=== PATIENT | male | born 1980 | race Asian ===

== ENCOUNTER → 2018-05-22 09:57 | Outpatient (CLI) | payer BC, SELFPAY ==
--- NOTE | 2018-05-22 10:00 | DI.RAD.S_ITS ---
PROCEDURE: XR RIBS RT MIN 3V W CXR 1V INDICATIONS: 37 y/o M w/ worsening R rib pain s/p prolonged cough TECHNIQUE: 2 views of the right ribs were acquired, along with a single view chest. COMPARISON: None. FINDINGS: Surgical changes and devices: None. Bones and chest wall: No fractures or dislocations. No suspicious bony lesions. Overlying soft tissues appear unremarkable. Lungs and pleura: No pleural effusions or pneumothorax. Lungs appear clear. Mediastinum: Mediastinal contours appear normal. Heart size is normal. IMPRESSION: No rib fracture or apparent sequelae of any occult fracture. Dictated by: Fawad Finn M.D. on 05/22/2018 at 11:09 Approved by: Fawad Finn M.D. on 05/22/2018 at 11:13
[2018-05-22 10:24] LABS: Add Manual Diff / Slide Review NO; Basophils Percent Auto 0.8 % (0-2); Eosinophils Percent Auto 2.2 % (2-4); Hematocrit 43.9 % (41-53); Hemoglobin 14.7 g/dL (13.5-17.5); Lymphocytes Percent Auto 48.6 % (25-40); Mean Corpuscular HGB Conc 33.6 % (30-36); Mean Corpuscular Hemoglobin 30.5 PG (26-34); Mean Corpuscular Volume 90.9 fL (80-100); Monocytes Percent Auto 9.7 % (3-14); Neutrophils Absolute Auto 1900 /uL (3000-5900); Neutrophils Percent Auto 38.7 % (50-75); Platelet Count 401 X10^3/uL (150-400); Red Blood Cell Count 4.83 X10^6/uL (4.5-5.9); Red Cell Distribution Width 12.8 % (11.6-14.8)
[2018-05-22 10:46] LABS: Alanine Aminotransferase 28 IU/L (21-72); Albumin 4.6 g/dL (3.5-5.0); Albumin Globulin Ratio 1.3 (1.0-2.8); Alkaline Phosphatase 85 U/L (38-126); Aspartate Aminotransferase 30 IU/L (17-59); BUN Creatinine Ratio 22.9 (6-22); Bilirubin Total 0.6 mg/dL (0.2-1.3); Blood Urea Nitrogen 16 mg/dL (9-20); C-Reactive Protein Quant < 0.5 mg/dL (<1.0); Calcium 9.1 mg/dL (8.4-10.2); Carbon Dioxide 31 mmol/L (22-32); Chloride 102 mmol/L (98-107); Estimated Glomerular Filt Rate > 60.0 mL/min (>60); Globulin 3.5 g/dL (1.7-4.1); Glucose 74 mg/dL (70-100); HEMOLYSIS < 15 (0-50); Potassium 3.9 mmol/L (3.4-5.1); Sodium 142 mmol/L (137-145); Total Protein 8.1 g/dL (6.3-8.2)
[2018-05-22 10:47] LABS: Erythrocyte Sedimentation Rate 6 MM/HR (0-15)
== END ==
PROVIDERS: PCP Physician Assistant; Visit Provider Physician Assistant
DX: R07.81 Pleurodynia (principal)
CPT/HCPCS: 36415; 71101; 80053; 85025; 85651; 86140

== ENCOUNTER 2019-02-13 09:53 | Emergency (ER) | payer BC, SELFPAY ==
[2019-02-13 10:00] VITALS: BP 128/78; PULSE 79; RESP 18; TEMP 36.8; O2SAT 100; BMI 25.1
--- NOTE | 2019-02-13 10:15 | ED.GENADULT ---
HPI - General Adult General Chief complaint: Extremity Problem,Nontraumatic Stated complaint: Hands Cramping and in a lot of pain Time Seen by Provider: 02/13/19 10:03 Source: patient and family () Mode of arrival: wheelchair Limitations: no limitations History of Present Illness HPI narrative: This is a 38-year-old male who comes in with complaint of fever and little bit of cold cough and congestion symptoms. Patient states that this morning he woke up felt very nauseated and started having cramping in his hands with a cramped up. Patient also felt like he is having a little bit in his feet but it was not as extensive he did have any cramping in his upper extremities otherwise or his lower extremities. He has not had any vomiting. He states his nausea has resolved after the hand cramping. Patient isn't having any chest pain, no abdominal pain, no shortness of breath. He has not had any passing out. Patient is denying any difficulties with speech or irregular movements. Patient has had normal bowel movements. He has had normal urination. He states he has had symptoms for about 2 or 3 days. He has not been drinking much water but has been eating regularly. 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 He states that in May of 2018 he had a tick bite with a little bit of rash although was not when he was told was the typical Lyme rash she was checked for Lyme disease and was told it was negative. He is continuing to have the rash or skin irregularity. He states it is not really a rash and has an appointment with Dermatology. Related Data Previous Rx's Medication Instructions Recorded oseltamivir [Tamiflu] 75 mg PO Q12H 5 Days #10 cap 02/13/19 Allergies Allergy/AdvReac Type Severity Reaction Status Date / Time No Known Drug Allergies Allergy Verified 02/13/19 10:09 Review of Systems Review of Systems ROS Unobtainable: All systems reviewed & are unremarkable except as noted in HPI and below Constitutional Denies chills, Reports fever(s), Denies lethargy and Denies weakness Eyes Denies change in vision ENT Ears, Nose, Mouth, and Throat: Denies dizziness, Reports nasal congestion and Denies disequilibrium Cardiovascular Denies chest pain, Denies diaphoresis, Denies syncope, Denies edema, Denies irregular heart rhythm, Denies lightheadedness, Denies palpitations, Denies dyspnea, Denies dyspnea on exertion and Denies orthopnea Respiratory Denies change in phlegm color, Denies chest congestion, Reports cough, Denies excessive phlegm production, Denies dyspnea, Denies dyspnea on exertion and Denies wheezing Gastrointestinal Gastrointestinal: Denies abdominal pain, Denies change in bowel habits, Denies constipation, Denies diarrhea, Reports nausea (Resolved) and Denies vomiting Genitourinary Denies hematuria, Denies difficulty urinating, Denies dysuria, Denies flank pain and Denies urinary urgency Musculoskeletal Reports as per HPI, Denies abnormal gait, Denies back pain, Denies arthralgias, Denies joint swelling, Reports muscle cramps (Hands a little bit in the), Denies muscle weakness, Denies numbness and Denies tingling Integumentary/Breasts Reports rash (raised bumps from old tick bites.) Neurologic Reports as per HPI, Denies abnormal speech, Denies abnormal gait, Denies dizziness, Denies syncope, Denies focal weakness, Denies numbness, Denies restless legs, Denies convulsions, Denies tingling, Denies disequilibrium and Denies weakness Endocrine Denies palpitations Allergic/Immunologic Denies wheezing PFSH Social History Smoking Status: Never smoker alcohol intake: never Social History (Updated 02/13/19 @ 10:19 by Mary Morton DO) marital status: current occupational exposures/hazards: Yes (Works in [employer]) Smoking Status: Never smoker alcohol intake: never substance use type: does not use Exam Narrative Exam Narrative: GEN: well nourished, well appearing male, alert and oriented x 3, patient appears to be in mild distress. HEENT: Atraumatic, pupils are equal round reactive to light, extraocular movements are intact, nares are clear, TMs are clear with no fluid, there is no conjunctival pallor. Throat is clear without any exudates, erythema, tonsillar enlargement or uvular deviation, normal speech. HEART: Regular rate and rhythm without murmur, clicks, rubs. Pulses are equal in upper and lower extremities LUNGS:Lungs clear to auscultation, no wheezes, rales, crackles, chest moves symmetrically ABD:bowel sounds normal, soft, non-tender, no guarding, rebound, rigidity, no masses noted, no hepatosplenomegaly :No CVA tenderness MSCL: Non-tender, no muscle atrophy, muscles strength 5/5 upper and lower extremities, full range of motion, hands are held flexed at the MCP joints with fingers mostly extended. I am able to easily straight them which does not cause any discomfort and there is no resistance, patient was able to scratch his ear and move his fingers but fingers or to stay in the same generalized position, they appear loosely held. No other cramping noted. No muscle fasciculations. NEURO:CN 2-12 intact, sensation normal, reflexes 2/4 upper and lower extremities Initial Vital Signs Initial Vital Signs: Vital Signs Temperature 98.2 F 02/13/19 10:00 Pulse Rate 79 02/13/19 10:00 Respiratory Rate 18 02/13/19 10:00 Blood Pressure 128/78 02/13/19 10:00 Pulse Oximetry 100 02/13/19 10:00 Course Orders Ordered: ED Orders 02/13/19 11:28 Urine Microscopic Stat Discontinued Medications Furosemide (Lasix) 40 mg IV NOW ONE Stop: 02/13/19 12:39 Last Admin: 02/13/19 12:59 Dose: Not Given Sodium Chloride (Normal Saline 0.9%) 1,000 mls @ 1,000 mls/hr IV BOLUS ONE Stop: 02/13/19 11:14 Last Infusion: 02/13/19 11:30 Dose: 0 mls/hr Admin: 02/13/19 10:30 Dose: 1,000 mls/hr Vital Signs - 8 hr 02/13/19 12:00 02/13/19 13:00 Temperature 98.9 F Pulse Rate 88 87 Respiratory Rate 23 85 H Blood Pressure [Left Arm] 122/69 119/69 Pulse Oximetry 100 98 Medical Decision Making Lab Data Lab results reviewed: Yes I reviewed the patient's lab results. Result diagrams: 02/13/19 10:20 02/13/19 10:20 Lab Results 02/13/19 02/13/19 02/13/19 Range/Units 10:20 10:20 10:20 WBC 5.8 (4.5-11.0) X10^3/uL RBC 5.06 (4.5-5.9) X10^6/uL Hgb 15.4 (13.5-17.5) g/dL Hct 45.5 (41-53) % MCV 89.8 (80-100) fL MCH 30.4 (26-34) PG MCHC 33.8 (30-36) % RDW 12.9 (11.6-14.8) % Plt Count 257 (150-400) X10^3/uL Neut % (Auto) 68.5 (50-75) % Lymph % (Auto) 18.9 L (25-40) % [place] % (Auto) 12.1 (3-14) % Eos % (Auto) 0.1 L (2-4) % Baso % (Auto) 0.4 (0-2) % Neut # (Auto) 3900 (0581-7892) /uL Lymph # (Auto) 1100 (7578-1367) /uL [place] # (Auto) 700 (0-900) /uL Eos # (Auto) 0 (0-450) /uL Baso # (Auto) 0 (0-100) /uL Sodium 137 (137-145) mmol/L Potassium 3.6 (3.4-5.1) mmol/L Chloride 100 (98-107) mmol/L Carbon Dioxide 25 (22-32) mmol/L BUN 10 (9-20) mg/dL Creatinine 1.00 (0.66-1.25) mg/dL Estimated GFR > 60.0 (>60) mL/min BUN/Creatinine Ratio 10.0 (6-22) Glucose 128 H (70-100) mg/dL Calcium 8.9 (8.4-10.2) mg/dL Phosphorus 2.2 L (2.5-4.5) mg/dL Magnesium 1.8 (1.6-2.3) mg/dL Total Bilirubin 0.4 (0.2-1.3) mg/dL AST 27 (17-59) IU/L ALT 33 (21-72) IU/L Alkaline Phosphatase 71 (38-126) U/L Total Protein 7.7 (6.3-8.2) g/dL Albumin 4.6 (3.5-5.0) g/dL Globulin 3.1 (1.7-4.1) g/dL Albumin/Globulin Ratio 1.5 (1.0-2.8) Lipase 36 (23-300) U/L Urine RBC (0-5/HPF) Urine WBC (0-5/HPF) Ur Squamous Epith Cells Urine Bacteria (None) Urine Mucus (Negative) Ur Culture Indicated? Influenza A & B (PCR) Positive, type b H (Negative) 02/13/19 Range/Units 11:28 WBC (4.5-11.0) X10^3/uL RBC (4.5-5.9) X10^6/uL Hgb (13.5-17.5) g/dL Hct (41-53) % MCV (80-100) fL MCH (26-34) PG MCHC (30-36) % RDW (11.6-14.8) % Plt Count (150-400) X10^3/uL Neut % (Auto) (50-75) % Lymph % (Auto) (25-40) % [place] % (Auto) (3-14) % Eos % (Auto) (2-4) % Baso % (Auto) (0-2) % Neut # (Auto) (4813-0630) /uL Lymph # (Auto) (3385-2624) /uL [place] # (Auto) (0-900) /uL Eos # (Auto) (0-450) /uL Baso # (Auto) (0-100) /uL Sodium (137-145) mmol/L Potassium (3.4-5.1) mmol/L Chloride (98-107) mmol/L Carbon Dioxide (22-32) mmol/L BUN (9-20) mg/dL Creatinine (0.66-1.25) mg/dL Estimated GFR (>60) mL/min BUN/Creatinine Ratio (6-22) Glucose (70-100) mg/dL Calcium (8.4-10.2) mg/dL Phosphorus (2.5-4.5) mg/dL Magnesium (1.6-2.3) mg/dL Total Bilirubin (0.2-1.3) mg/dL AST (17-59) IU/L ALT (21-72) IU/L Alkaline Phosphatase (38-126) U/L Total Protein (6.3-8.2) g/dL Albumin (3.5-5.0) g/dL Globulin (1.7-4.1) g/dL Albumin/Globulin Ratio (1.0-2.8) Lipase (23-300) U/L Urine RBC None seen (0-5/HPF) Urine WBC None seen (0-5/HPF) Ur Squamous Epith Cells 0-1 /hpf Urine Bacteria None seen (None) Urine Mucus 1+ H (Negative) Ur Culture Indicated? Cult not indicated Influenza A & B (PCR) (Negative) Urine Dip Bedside Urine Glucose Negative Bedside Urine Bilirubin - Negative Bedside Urine Ketone + 15 Urine Specific [place] 1.015 Bedside Urine Occult Blood - Negative Bedside Urine pH 7.5 Bedside Urine Protein + 30 Bedside Urine Urobilinogen +/- 1mg Bedside Urine Nitrite - Negative Bedside Urine Leukocytes - Negative Esterase Point of care testing: Urine Dip Bedside Urine Glucose Negative Bedside Urine Bilirubin - Negative Bedside Urine Ketone + 15 Urine Specific [place] 1.015 Bedside Urine Occult Blood - Negative Bedside Urine pH 7.5 Bedside Urine Protein + 30 Bedside Urine Urobilinogen +/- 1mg Bedside Urine Nitrite - Negative Bedside Urine Leukocytes - Negative Esterase MDM Narrative Medical decision making narrative: Discussed with patient. He is influenza positive. His phosphorus is low but not extremely. He has also been taking cold and cough medicine [id number] above the recommended frequency. He states he is taking about every 4 hours but the bottle states only take about 4 times daily. He also has not had hardly any water in the last 24 hours. Just a couple sips. We discussed increase his fluids. His symptoms have resolved after fluids here in the ED. Patient and I discussed Tamiflu he decided could take it. We discussed signs symptoms to watch out for. He could drink some extra skim milk as this can help with low phosphorus. He was offered phosphorus replacement but defers. Discharge Plan Departure Patient Disposition: Home Clinical Impression: Influenza B, Low serum phosphorus for age Discharge Date/Time: 02/13/19 13:35 Interventions: ED Discharge Assessment Last Done: 02/13/19 13:35 Instructions: DI for Influenza -- Adult Activity Restrictions/Additional Instructions: Make sure your drinking plenty of fluids. Do not exceed any recommended dosages of [id number] cough or cold medications in a 24 hour. This can contribute to your muscle spasms. Take Tamiflu 1 tablet twice daily for 5 days. Your phosphorus is low today, you can increase this by drinking skim milk regularly for the next 1-2 days. I do recommend he take ibuprofen up to 800 mg every 8 hours and/or Tylenol to a 1000 mg every 8 hours as needed for fevers. Return to the emergency department for altered mental status, rapidly worsening symptoms, new shortness of breath, difficulty breathing, chest pain or pressure, persistent vomiting, black or bloody stools, passing out, recurrent or refractory muscle spasms, or other new or concerning symptoms. Prescriptions: New oseltamivir [Tamiflu] 75 mg capsule 75 mg PO Q12H 5 Days Qty: 10 RF: 0 Referrals: Jordan Tamez PA-C [Primary Care Provider] - Stand Alone Forms: Work Release Note
--- NOTE | 2019-02-13 10:21 | ED_ITS ---
HPI - General Adult General Chief complaint: Extremity Problem,Nontraumatic Stated complaint: Hands Cramping and in a lot of pain Time Seen by Provider: 02/13/19 10:03 Source: patient and family () Mode of arrival: wheelchair Limitations: no limitations History of Present Illness HPI narrative: This is a 38-year-old male who comes in with complaint of fever and little bit of cold cough and congestion symptoms. Patient states that this morning he woke up felt very nauseated and started having cramping in his hands with a cramped up. Patient also felt like he is having a little bit in his feet but it was not as extensive he did have any cramping in his upper extremities otherwise or his lower extremities. He has not had any vomiting. He states his nausea has resolved after the hand cramping. Patient isn't having any chest pain, no abdominal pain, no shortness of breath. He has not had any passing out. Patient is denying any difficulties with speech or irregular movements. Patient has had normal bowel movements. He has had normal urination. He states he has had symptoms for about 2 or 3 days. He has not been drinking much water but has been eating regularly. 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 He states that in May of 2018 he had a tick bite with a little bit of rash although was not when he was told was the typical Lyme rash she was checked for Lyme disease and was told it was negative. He is continuing to have the rash or skin irregularity. He states it is not really a rash and has an appointment with Dermatology. Related Data Previous Rx's Medication Instructions Recorded oseltamivir [Tamiflu] 75 mg PO Q12H 5 Days #10 cap 02/13/19 Allergies Allergy/AdvReac Type Severity Reaction Status Date / Time No Known Drug Allergies Allergy Verified 02/13/19 10:09 Review of Systems Review of Systems ROS Unobtainable: All systems reviewed & are unremarkable except as noted in HPI and below Constitutional Denies chills, Reports fever(s), Denies lethargy and Denies weakness Eyes Denies change in vision ENT Ears, Nose, Mouth, and Throat: Denies dizziness, Reports nasal congestion and Denies disequilibrium Cardiovascular Denies chest pain, Denies diaphoresis, Denies syncope, Denies edema, Denies irregular heart rhythm, Denies lightheadedness, Denies palpitations, Denies dyspnea, Denies dyspnea on exertion and Denies orthopnea Respiratory Denies change in phlegm color, Denies chest congestion, Reports cough, Denies excessive phlegm production, Denies dyspnea, Denies dyspnea on exertion and Denies wheezing Gastrointestinal Gastrointestinal: Denies abdominal pain, Denies change in bowel habits, Denies constipation, Denies diarrhea, Reports nausea (Resolved) and Denies vomiting Genitourinary Denies hematuria, Denies difficulty urinating, Denies dysuria, Denies flank pain and Denies urinary urgency Musculoskeletal Reports as per HPI, Denies abnormal gait, Denies back pain, Denies arthralgias, Denies joint swelling, Reports muscle cramps (Hands a little bit in the), Denies muscle weakness, Denies numbness and Denies tingling Integumentary/Breasts Reports rash (raised bumps from old tick bites.) Neurologic Reports as per HPI, Denies abnormal speech, Denies abnormal gait, Denies diz ziness, Denies syncope, Denies focal weakness, Denies numbness, Denies restless legs, Denies convulsions, Denies tingling, Denies disequilibrium and Denies weakness Endocrine Denies palpitations Allergic/Immunologic Denies wheezing PFSH Social History Smoking Status: Never smoker alcohol intake: never Social History (Updated 02/13/19 @ 10:19 by Mary Morton DO) marital status: current occupational exposures/hazards: Yes (Works in [employer]) Smoking Status: Never smoker alcohol intake: never substance use type: does not use Exam Narrative Exam Narrative: GEN: well nourished, well appearing male, alert and oriented x 3, patient appears to be in mild distress. HEENT: Atraumatic, pupils are equal round reactive to light, extraocular movements are intact, nares are clear, TMs are clear with no fluid, there is no conjunctival pallor. Throat is clear without any exudates, erythema, tonsillar enlargement or uvular deviation, normal speech. HEART: Regular rate and rhythm without murmur, clicks, rubs. Pulses are equal in upper and lower extremities LUNGS:Lungs clear to auscultation, no wheezes, rales, crackles, chest moves symmetrically ABD:bowel sounds normal, soft, non-tender, no guarding, rebound, rigidity, no masses noted, no hepatosplenomegaly :No CVA tenderness MSCL: Non-tender, no muscle atrophy, muscles strength 5/5 upper and lower extremities, full range of motion, hands are held flexed at the MCP joints with fingers mostly extended. I am able to easily straight them which does not cause any discomfort and there is no resistance, patient was able to scratch his ear and move his fingers but fingers or to stay in the same generalized position, they appear loosely held. No other cramping noted. No muscle fasciculations. NEURO:CN 2-12 intact, sensation normal, reflexes 2/4 upper and lower extremities Initial Vital Signs Initial Vital Signs: Vital Signs Temperature 98.2 F 02/13/19 10:00 Pulse Rate 79 02/13/19 10:00 Respiratory Rate 18 02/13/19 10:00 Blood Pressure 128/78 02/13/19 10:00 Pulse Oximetry 100 02/13/19 10:00 Course Orders Ordered: ED Orders 02/13/19 11:28 Urine Microscopic Stat Discontinued Medications Furosemide (Lasix) 40 mg IV NOW ONE Stop: 02/13/19 12:39 Last Admin: 02/13/19 12:59 Dose: Not Given Sodium Chloride (Normal Saline 0.9%) 1,000 mls @ 1,000 mls/hr IV BOLUS ONE Stop: 02/13/19 11:14 Last Infusion: 02/13/19 11:30 Dose: 0 mls/hr Admin: 02/13/19 10:30 Dose: 1,000 mls/hr Vital Signs - 8 hr 02/13/19 12:00 02/13/19 13:00 Temperature 98.9 F Pulse Rate 88 87 Respiratory Rate 23 85 H Blood Pressure [Left Arm] 122/69 119/69 Pulse Oximetry 100 98 Medical Decision Making Lab Data Lab results reviewed: Yes I reviewed the patient's lab results. Result diagrams: 02/13/19 10:20 02/13/19 10:20 Lab Results 02/13/19 02/13/19 02/13/19 Range/Units 10:20 10:20 10:20 WBC 5.8 (4.5-11.0) X10^3/uL RBC 5.06 (4.5-5.9) X10^6/uL Hgb 15.4 (13.5-17.5) g/dL Hct 45.5 (41-53) % MCV 89.8 (80-100) fL MCH 30.4 (26-34) PG MCHC 33.8 (30-36) % RDW 12.9 (11.6-14.8) % Plt Count 257 (150-400) X10^3/uL Neut % (Auto) 68.5 (50-75) % Lymph % (Auto) 18.9 L (25-40) % [place] % (Auto) 12.1 (3-14) % Eos % (Auto) 0.1 L (2-4) % Baso % (Auto) 0.4 (0-2) % Neut # (Auto) 3900 (8128-1522) /uL Lymph # (Auto) 1100 (2655-8047) /uL [place] # (Auto) 700 (0-900) /uL Eos # (Auto) 0 (0-450) /uL Baso # (Auto) 0 (0-100) /uL Sodium 137 (137-145) mmol/L Potassium 3.6 (3.4-5.1) mmol/L Chloride 100 (98-107) mmol/L Carbon Dioxide 25 (22-32) mmol/L BUN 10 (9-20) mg/dL Creatinine 1.00 (0.66-1.25) mg/dL Estimated GFR > 60.0 (>60) mL/min BUN/Creatinine Ratio 10.0 (6-22) Glucose 128 H (70-100) mg/dL Calcium 8.9 (8.4-10.2) mg/dL Phosphorus 2.2 L (2.5-4.5) mg/dL Magnesium 1.8 (1.6-2.3) mg/dL Total Bilirubin 0.4 (0.2-1.3) mg/dL AST 27 (17-59) IU/L ALT 33 (21-72) IU/L Alkaline Phosphatase 71 (38-126) U/L Total Protein 7.7 (6.3-8.2) g/dL Albumin 4.6 (3.5-5.0) g/dL Globulin 3.1 (1.7-4.1) g/dL Albumin/Globulin Ratio 1.5 (1.0-2.8) Lipase 36 (23-300) U/L Urine RBC (0-5/HPF) Urine WBC (0-5/HPF) Ur Squamous Epith Cells Urine Bacteria (None) Urine Mucus (Negative) Ur Culture Indicated? Influenza A & B (PCR) Positive, type b H (Negative) 02/13/19 Range/Units 11:28 WBC (4.5-11.0) X10^3/uL RBC (4.5-5.9) X10^6/uL Hgb (13.5-17.5) g/dL Hct (41-53) % MCV (80-100) fL MCH (26-34) PG MCHC (30-36) % RDW (11.6-14.8) % Plt Count (150-400) X10^3/uL Neut % (Auto) (50-75) % Lymph % (Auto) (25-40) % [place] % (Auto) (3-14) % Eos % (Auto) (2-4) % Baso % (Auto) (0-2) % Neut # (Auto) (6197-9109) /uL Lymph # (Auto) (1427-0976) /uL [place] # (Auto) (0-900) /uL Eos # (Auto) (0-450) /uL Baso # (Auto) (0-100) /uL Sodium (137-145) mmol/L Potassium (3.4-5.1) mmol/L Chloride (98-107) mmol/L Carbon Dioxide (22-32) mmol/L BUN (9-20) mg/dL Creatinine (0.66-1.25) mg/dL Estimated GFR (>60) mL/min BUN/Creatinine Ratio (6-22) Glucose (70-100) mg/dL Calcium (8.4-10.2) mg/dL Phosphorus (2.5-4.5) mg/dL Magnesium (1.6-2.3) mg/dL Total Bilirubin (0.2-1.3) mg/dL AST (17-59) IU/L ALT (21-72) IU/L Alkaline Phosphatase (38-126) U/L Total Protein (6.3-8.2) g/dL Albumin (3.5-5.0) g/dL Globulin (1.7-4.1) g/dL Albumin/Globulin Ratio (1.0-2.8) Lipase (23-300) U/L Urine RBC None seen (0-5/HPF) Urine WBC None seen (0-5/HPF) Ur Squamous Epith Cells 0-1 /hpf Urine Bacteria None seen (None) Urine Mucus 1+ H (Negative) Ur Culture Indicated? Cult not indicated Influenza A & B (PCR) (Negative) Urine Dip Bedside Urine Glucose Negative Bedside Urine Bilirubin - Negative Bedside Urine Ketone + 15 Urine Specific [place] 1.015 Bedside Urine Occult Blood - Negative Bedside Urine pH 7.5 Bedside Urine Protein + 30 Bedside Urine Urobilinogen +/- 1mg Bedside Urine Nitrite - Negative Bedside Urine Leukocytes - Negative Esterase Point of care testing: Urine Dip Bedside Urine Glucose Negative Bedside Urine Bilirubin - Negative Bedside Urine Ketone + 15 Urine Specific [place] 1.015 Bedside Urine Occult Blood - Negative Bedside Urine pH 7.5 Bedside Urine Protein + 30 Bedside Urine Urobilinogen +/- 1mg Bedside Urine Nitrite - Negative Bedside Urine Leukocytes - Negative Esterase MDM Narrative Medical decision making narrative: Discussed with patient. He is influenza posi tive. His phosphorus is low but not extremely. He has also been taking cold and cough medicine [id number] above the recommended frequency. He states he is taking about every 4 hours but the bottle states only take about 4 times daily. He also has not had hardly any water in the last 24 hours. Just a couple sips. We discussed increase his fluids. His symptoms have resolved after fluids here in the ED. Patient and I discussed Tamiflu he decided could take it. We discussed signs symptoms to watch out for. He could drink some extra skim milk as this can help with low phosphorus. He was offered phosphorus replacement but defers. Discharge Plan Departure Patient Disposition: Home Clinical Impression: Influenza B, Low serum phosphorus for age Discharge Date/Time: 02/13/19 13:35 Interventions: ED Discharge Assessment Last Done: 02/13/19 13:35 Instructions: DI for Influenza -- Adult Activity Restrictions/Additional Instructions: Make sure your drinking plenty of fluids. Do not exceed any recommended dosages of [id number] cough or cold medications in a 24 hour. This can contribute to your muscle spasms. Take Tamiflu 1 tablet twice daily for 5 days. Your phosphorus is low today, you can increase this by drinking skim milk regularly for the next 1-2 days. I do recommend he take ibuprofen up to 800 mg every 8 hours and/or Tylenol to a 1000 mg every 8 hours as needed for fevers. Return to the emergency department for altered mental status, rapidly worsening symptoms, new shortness of breath, difficulty breathing, chest pain or pressure, persistent vomiting, black or bloody stools, passing out, recurrent or refractory muscle spasms, or other new or concerning symptoms. Prescriptions: New oseltamivir [Tamiflu] 75 mg capsule 75 mg PO Q12H 5 Days Qty: 10 RF: 0 Referrals: Jordan Tamez PA-C [Primary Care Provider] - Stand Alone Forms: Work Release Note
[2019-02-13] MEDS: SODIUM CHLORIDE 0.9% 1,000 ML 1000 ML IV (10:30)
[2019-02-13 10:31] LABS: Add Manual Diff / Slide Review NO; Basophils Absolute Auto 0 /uL (0-100); Basophils Percent Auto 0.4 % (0-2); Eosinophils Absolute Auto 0 /uL (0-450); Eosinophils Percent Auto 0.1 % (2-4); Hematocrit 45.5 % (41-53); Hemoglobin 15.4 g/dL (13.5-17.5); Lymphocytes Absolute Auto 1100 /uL (1100-4500); Lymphocytes Percent Auto 18.9 % (25-40); Mean Corpuscular HGB Conc 33.8 % (30-36); Mean Corpuscular Hemoglobin 30.4 PG (26-34); Mean Corpuscular Volume 89.8 fL (80-100); Monocytes Absolute Auto 700 /uL (0-900); Monocytes Percent Auto 12.1 % (3-14); Neutrophils Absolute Auto 3900 /uL (1500-7000); Neutrophils Percent Auto 68.5 % (50-75); Platelet Count 257 X10^3/uL (150-400); Red Blood Cell Count 5.06 X10^6/uL (4.5-5.9); Red Cell Distribution Width 12.9 % (11.6-14.8); White Blood Cell Count 5.8 X10^3/uL (4.5-11.0)
[2019-02-13 10:32] VITALS: BP 122/76; PULSE 78; RESP 18; O2SAT 99
--- NOTE | 2019-02-13 10:36 | PC.NURSE ---
Pt initially presented with bilateral hand cramping with tingling. No hx of electrolyte imbalances. Pt hands are no longer cramping, full ROM.
[2019-02-13 10:45] LABS: Alanine Aminotransferase 33 IU/L (21-72); Albumin 4.6 g/dL (3.5-5.0); Albumin Globulin Ratio 1.5 (1.0-2.8); Alkaline Phosphatase 71 U/L (38-126); Aspartate Aminotransferase 27 IU/L (17-59); Bilirubin Total 0.4 mg/dL (0.2-1.3); Blood Urea Nitrogen 10 mg/dL (9-20); Calcium 8.9 mg/dL (8.4-10.2); Carbon Dioxide 25 mmol/L (22-32); Chloride 100 mmol/L (98-107); Estimated Glomerular Filt Rate > 60.0 mL/min (>60); Globulin 3.1 g/dL (1.7-4.1); Glucose 128 mg/dL (70-100); HEMOLYSIS < 15 (0-50); Lipase 36 U/L (23-300); Magnesium 1.8 mg/dL (1.6-2.3); Phosphorous 2.2 mg/dL (2.5-4.5); Potassium 3.6 mmol/L (3.4-5.1); Sodium 137 mmol/L (137-145); Total Protein 7.7 g/dL (6.3-8.2)
[2019-02-13 11:00] VITALS: BP 127/78; PULSE 87; RESP 21; O2SAT 99
[2019-02-13 11:29] LABS: Bacteria Urine None Seen; RBC Urine None Seen (0-5/HPF); WBC Urine None Seen (0-5/HPF)
[2019-02-13 11:39] LABS: Culture Indicated Urine Cult Not Indicated; Mucus Urine 1+ (Negative); Squamous Epithelial Cell Urine 0-1 /HPF
[2019-02-13 12:00] VITALS: BP 122/69; PULSE 88; RESP 23; O2SAT 100
[2019-02-13 13:00] VITALS: BP 119/69; PULSE 87; RESP 85; TEMP 37.2; O2SAT 98
== END 2019-02-13 13:35 | disposition home or self-care (01) ==
PROVIDERS: Emergency Provider Emergency Medicine; PCP Physician Assistant
DX: J10.1 Influenza due to other identified influenza virus with other respiratory manifestations (principal); R79.0 Abnormal level of blood mineral; R25.2 Cramp and spasm
CPT/HCPCS: 36591; 80053; 81003; 81015; 83690; 83735; 84100; 85025; 87400; 96360; 99283

== ENCOUNTER → 2020-01-16 08:50 | Outpatient (CLI) | payer OTHER, SELFPAY ==
--- NOTE | 2020-01-16 08:52 | DI.RAD.S_ITS ---
PROCEDURE: XR HAND RT MIN 3V INDICATIONS: pain and swelling to thumb/hand, r/o fx TECHNIQUE: 4 views of the hand(s) acquired. COMPARISON: None. FINDINGS: Bones: No fractures or dislocations. Carpal bones are normally aligned. No suspicious bony lesions. Soft tissues: No suspicious soft tissue calcifications. IMPRESSION: No visualized acute fracture or dislocation. However, if clinical concern and/or pain persist, short interval imaging followup in 7-10 days is recommended, as occult injury cannot be definitively excluded. Dictated by: Sana Alexander M.D. on 01/16/2020 at 9:14 Approved by: Sana Alexander M.D. on 01/16/2020 at 9:15
== END ==
PROVIDERS: PCP Physician Assistant; Referring Provider Physician Assistant; Visit Provider Physician Assistant
DX: S69.91XA Unspecified injury of right wrist, hand and finger(s), initial encounter (principal); X58.XXXA Exposure to other specified factors, initial encounter
CPT/HCPCS: 73130

== ENCOUNTER → 2021-02-19 08:21 | Outpatient (CLI) | payer BC, SELFPAY ==
[2021-02-19] MEDS: COVID-19 VACC, Ad26(JANSSEN)/PF 0.5 ML IM (08:27)
== END ==
PROVIDERS: Visit Provider Internal Medicine
DX: Z23 Encounter for immunization (principal)
CPT/HCPCS: 0031A; 91303

== ENCOUNTER → 2021-05-04 18:06 | Outpatient (CLI) | payer BC, SELFPAY ==
--- NOTE | 2021-05-04 | DI.RAD.S_ITS ---
PROCEDURE: XR CERVICAL SPINE 2V OR 3V INDICATIONS: C Spine Pain,L Spine Pain,T Spine Pain TECHNIQUE: 2 view(s) of the cervical spine were acquired. COMPARISON: None. FINDINGS: Bones: No fractures or dislocations to the C7-T1 level. Very mild degenerative endplate changes at C5-6 and C6-7 levels are seen. The lateral masses of C1 appear intact on the odontoid view. No suspicious bony lesions. Soft tissues: No prevertebral soft tissue swelling. IMPRESSION: Very mild degenerative endplate changes in lower cervical spine. No cervical spine fracture or dislocation. Dictated by: Ricardo Madden M.D. on 05/04/2021 at 19:25 Approved by: Ricardo Madden M.D. on 05/04/2021 at 19:25
--- NOTE | 2021-05-04 | DI.RAD.S_ITS ---
PROCEDURE: XR LUMBAR SPINE 2-3V INDICATIONS: C Spine Pain,L Spine Pain,T Spine Pain TECHNIQUE: 2 views of the lumbar spine were acquired. COMPARISON: None. FINDINGS: Bones: 5 [id number] vertebrae are present. There is normal bony alignment. Mild degenerative endplate changes are seen at L4-5 and L5-S1 levels. No vertebral body compression fractures. No suspicious bony lesions. Soft tissues: Overlying bowel gas pattern is normal. No suspicious soft tissue calcifications. IMPRESSION: Very mild degenerative endplate changes at L4-5 and L5-S1 levels. No lumbar spine fracture or dislocation. Dictated by: Ricardo Madden M.D. on 05/04/2021 at 19:24 Approved by: Ricardo Madden M.D. on 05/04/2021 at 19:25
--- NOTE | 2021-05-04 | DI.RAD.S_ITS ---
PROCEDURE: XR THORACIC SPINE 2V INDICATIONS: C Spine Pain,L Spine Pain,T Spine Pain TECHNIQUE: 2 views of the thoracic spine were acquired. COMPARISON: None. FINDINGS: Bones: Very mild rightward curvature of lower thoracic spine centered at T9 level is seen. No fractures or dislocations. No suspicious bony lesions. 12 pairs of ribs are noted, and appear intact where visualized. Soft tissues: No paravertebral stripe thickening. IMPRESSION: Very mild rightward curvature of thoracic spine as above. No thoracic spine fracture or dislocation. Dictated by: Ricardo Madden M.D. on 05/04/2021 at 19:23 Approved by: Ricardo Madden M.D. on 05/04/2021 at 19:24
== END ==
PROVIDERS: Referring Provider Chiropractor; Visit Provider Chiropractor
DX: M99.01 Segmental and somatic dysfunction of cervical region (principal); M99.02 Segmental and somatic dysfunction of thoracic region; M99.03 Segmental and somatic dysfunction of lumbar region; M54.2 Cervicalgia; M54.6 Pain in thoracic spine; M54.5 Low back pain
CPT/HCPCS: 72040; 72070; 72100

== ENCOUNTER → 2021-06-09 09:07 | Outpatient (CLI) | payer BC, SELFPAY ==
--- NOTE | 2021-06-09 | DI.MRI.S_ITS ---
PROCEDURE: MR LUMBAR SPINE WO CON INDICATIONS: Low back pain TECHNIQUE: Noncontrast sagittal T1 spin echo and T2 fast echo, sagittal STIR, axial T1 and T2 fast spin echo through the lumbar spine. In cases with scoliosis, additional coronal T2 fast spin echo may be performed. COMPARISON: [facility], CR, XR LUMBAR SPINE 2-3V, 05/04/2021, 18:19. FINDINGS: Image quality: Excellent. Alignment and Curvature: 5 lumbar type vertebral bodies are present by plain film. Mild grade 1 retrolisthesis of L3 on L4. Bone Marrow: Marrow is of normal overall signal. No acute vertebral body compression fractures. Minimal reactive signal within the endplates adjacent to the L2-L3 and L3-L4 intervertebral discs. Spinal Cord: Conus medullaris terminates at the lower L1 level. Visualized cord demonstrates normal signal and size. Paraspinous Soft Tissues: No paravertebral masses. T12-L1: Normal appearance. L1-L2: Normal appearance. L2-L3: Normal appearance. L3-L4: Mild disc desiccation and diffuse disc bulge with superimposed small central protrusion. Mild facet and ligamentum flavum hypertrophy. Mild epidural lipomatosis. Mild canal stenosis. Mild bilateral foraminal stenosis. L4-L5: Mild bilateral facet and ligamentum flavum hypertrophy. No significant canal stenosis. Mild bilateral foraminal stenosis. L5-S1: Moderate disc height loss. No significant canal, or foraminal stenosis. IMPRESSION: 1. Multilevel degenerative disc and facet disease, as well as ligamentum flavum hypertrophy and epidural lipomatosis. 2. Mild multilevel canal and foraminal stenoses. No neural impingement. Dictated by: Donovan Kruger M.D. on 06/09/2021 at 9:49 Approved by: Donovan Kruger M.D. on 06/09/2021 at 9:51
== END ==
PROVIDERS: Referring Provider Chiropractor; Visit Provider Chiropractor
DX: M99.03 Segmental and somatic dysfunction of lumbar region (principal); M54.5 Low back pain; M51.36 Other intervertebral disc degeneration, lumbar region; M48.061 Spinal stenosis, lumbar region without neurogenic claudication; E88.2 Lipomatosis, not elsewhere classified
CPT/HCPCS: 72148

== ENCOUNTER 2022-05-30 20:16 | Emergency (ER) | payer BC, SELFPAY ==
[2022-05-30 20:26] VITALS: BP 134/78; PULSE 75; RESP 18; TEMP 37.1; O2SAT 98; BMI 25.8
--- NOTE | 2022-05-30 20:31 | DI.RAD.S_ITS ---
PROCEDURE: XR FINGER RT MIN 2V INDICATIONS: fishhook through right third finger TECHNIQUE: AP hand, 2 views of the 3rd digit acquired. COMPARISON: None. FINDINGS: Bones: No fractures or dislocations. No suspicious bony lesions. Soft tissues: There is a curvilinear metallic foreign body in the soft tissues of the distal 3rd digit, localized to the volar ulnar aspect. No suspicious soft tissue calcifications. IMPRESSION: 1. Curvilinear metallic foreign body within the distal 3rd digit as described. 2. No fracture identified. Dictated by: Quang Callejas M.D. on 05/30/2022 at 21:38 Approved by: Quang Callejas M.D. on 05/30/2022 at 21:40
[2022-05-30] MEDS: TET,DIPH,PERTUSS(ACELL),VAC/PF 0.5 ML SYRINGE IM (21:03)
--- NOTE | 2022-05-30 21:38 | ED_ITS ---
HPI - General Adult General Chief complaint: Extremity Injury, Upper Stated complaint: BARBED HOOK IN RIGHT MIDDLE FINGER Time Seen by Provider: 05/30/22 21:30 Source: patient Mode of arrival: Ambulatory History of Present Illness HPI narrative: Otherwise healthy 41-year-old man presents with a barbed fishhook imbedded in the distal portion lateral aspect right middle finger. They did try to extract it home however with the ines, they were unable to do flow. They tried advancing it forward and ran into bone. Related Data Home Medications Medication Instructions Recorded Confirmed No Known Home Medications 01/16/20 01/16/20 Allergies Allergy/AdvReac Type Severity Reaction Status Date / Time No Known Drug Allergies Allergy Verified 05/30/22 20:26 Review of Systems Review of Systems Narrative: Pertinent positive and negative findings as per HPI Remainder of review of systems is otherwise unremarkable for Constitutional: Fevers, chills, weakness CV: Chest pain, palpitations, Respiratory: Cough, wheeze, dyspnea GI: Nausea, vomiting, diarrhea, Patient History Medical History Injury of right hand Social History marital status: current occupational exposures/hazards: Yes (Works in [employer]) Smoking Status: Never smoker alcohol intake: never substance use type: does not use Smoking Status: Never smoker alcohol intake frequency: 0-2 drinks per day Substance Use Type: does not use Exam Initial Vital Signs Initial Vital Signs: Vital Signs Temperature 98.7 F 05/30/22 20:26 Pulse Rate 75 05/30/22 20:26 Respiratory Rate 18 05/30/22 20:26 Blood Pressure 134/78 05/30/22 20:26 Pulse Oximetry 98 05/30/22 20:26 Oxygen Delivery Method 05/30/22 20:26 General: Alert appropriate in no acute distress Respiratory: Able to speak in full sentences, no obvious respiratory distress Skin: No obvious rashes, warm and dry Neurologic: Grossly intact no obvious asymmetries or abnormalities Psych: appropriate insight and affect, cooperative Extremity: Small medial aspect mid distal phalanx Procedures Foreign Body OTHER Time of procedure: 21:39 Foreign Body Removal Site: right and hand (Middle finger) Description of foreign body: fish hook Sedation/Analgesia: other (2 cc of 0.5% bupivacaine without epi) Technique: manual removal Confirmed by:: direct visualization Complications: none Course Orders Ordered: ED Orders 05/30/22 20:31 XR finger RT min 2V Stat Discontinued Medications Diphtheria/Tetanus/Acell Pertussis (Tet,Diph,Pertuss(Acell),Vac/Pf 0.5 Ml Syringe) 0.5 ml IM .ONCE ONE Stop: 05/30/22 20:33 Last Admin: 05/30/22 21:03 Dose: 0.5 ml Documented By: RL Vital Signs Vital signs: Vital Signs - 8 hr 05/30/22 20:26 Temperature 98.7 F Pulse Rate 75 Respiratory Rate 18 Blood Pressure 134/78 Pulse Oximetry 98 Oxygen Delivery Method Room Air Medical Decision Making MDM Narrative Medical decision making narrative: Otherwise healthy gentleman fishhook imbedded into the the distal portion of his right middle finger. A small amount of epi was injected. An 11 blade scalp was used to make a small puncture wound beside the ines and the fishhook in Bar removed with minimal trauma to the finger. The fishhook itself was quite small, the trauma was minimal at this point I do not think antibiotics are required. Will ask him to use antibiotic ointment and follow-up should he develop any type of infection signs or symptoms. Questions are answered he is safe for home discharge Discharge Plan Departure Patient Disposition: Home Clinical Impression: [place] injury to finger Activity Restrictions/Additional Instructions: Thank you for coming in today. I used a small amount of numb medicine, in large the puncture wound just a tiny bit, enough to allow the ines to come out, and the fishing hook was removed with minimal difficulty. The wound is small enough that I do not think that you need antibiotics orally. Please do use topical antibiotics like Neosporin until the wound is healing. If you are having increasing pain, redness, discharge or streaking from that site up your hand this is not normal and needs to be re-evaluated I hope it heals quickly Prescriptions: No Action No Known Home Medications
[2022-05-30] MEDS: BACITRACIN OINT 0.9 GM PCKT 1 APPLIC TOP (21:40)
== END 2022-05-30 21:51 | disposition home or self-care (01) ==
PROVIDERS: Emergency Provider Emergency Medicine
DX: S60.452A Superficial foreign body of right middle finger, initial encounter (principal); Z23 Encounter for immunization
CPT/HCPCS: 73140; 90471; 99283; 90715

== ENCOUNTER → 2022-10-19 07:47 | Outpatient (CLI) | payer BC, SELFPAY ==
[2022-10-19 09:57] LABS: Add Manual Diff / Slide Review NO; Basophils Absolute Auto 0 /uL (0-100); Basophils Percent Auto 0.7 % (0-2); Eosinophils Absolute Auto 200 /uL (0-450); Eosinophils Percent Auto 3.9 % (2-4); Hematocrit 43.1 % (41-53); Hemoglobin 14.7 g/dL (13.5-17.5); Lymphocytes Absolute Auto 2000 /uL (1100-4500); Lymphocytes Percent Auto 42.1 % (25-40); Mean Corpuscular HGB Conc 34.2 % (30-36); Mean Corpuscular Hemoglobin 30.5 PG (26-34); Mean Corpuscular Volume 89.2 fL (80-100); Monocytes Absolute Auto 400 /uL (0-900); Monocytes Percent Auto 7.8 % (3-14); Neutrophils Absolute Auto 2200 /uL (1500-7000); Neutrophils Percent Auto 45.5 % (50-75); Platelet Count 311 X10^3/uL (150-400); Red Blood Cell Count 4.83 X10^6/uL (4.5-5.9); Red Cell Distribution Width 12.8 % (11.6-14.8); White Blood Cell Count 4.8 X10^3/uL (4.5-11.0)
[2022-10-19 10:12] LABS: HEMOLYSIS < 15 (0-50)
[2022-10-19 10:17] LABS: Alanine Aminotransferase 23 IU/L (<50); Albumin 4.5 g/dL (3.5-5.0); Albumin Globulin Ratio 1.8 (1.0-2.8); Alkaline Phosphatase 70 U/L (38-126); Aspartate Aminotransferase 24 IU/L (17-59); BUN Creatinine Ratio 18.4 (6-22); Bilirubin Total 0.6 mg/dL (0.2-1.3); Blood Urea Nitrogen 16 mg/dL (9-20); Calcium 9.2 mg/dL (8.4-10.2); Carbon Dioxide 30 mmol/L (22-32); Chloride 101 mmol/L (98-107); Estimated Glomerular Filt Rate > 60 mL/min (>60); Globulin 2.5 g/dL (1.7-4.1); Glucose 90 mg/dL (70-100); Potassium 4.3 mmol/L (3.4-5.1); Sodium 138 mmol/L (137-145)
[2022-10-19 15:10] LABS: LDL Cholesterol Direct 132 mg/dL (<100)
[2022-10-19 19:45] LABS: Thyroid Stimulating Hormone 0.942 uIU/mL (0.47-4.68)
== END ==
PROVIDERS: PCP Family Medicine; Referring Provider Family Medicine; Visit Provider Family Medicine
DX: Z00.00 Encounter for general adult medical examination without abnormal findings (principal); R00.2 Palpitations
CPT/HCPCS: 36415; 80053; 83721; 83735; 84443; 85025

== ENCOUNTER → 2022-11-26 17:04 | Outpatient (CLI) | payer BC, SELFPAY ==
--- NOTE | 2022-11-26 17:08 | DI.RAD.S_ITS ---
PROCEDURE: XR CERVICAL SPINE 2V OR 3V INDICATIONS: Radiculopathy Multiple sites in spine TECHNIQUE: 3 view(s) of the cervical spine were acquired. COMPARISON: [facility], CR, XR CERVICAL SPINE 2V OR 3V, 05/04/2021, 18:19. FINDINGS: Bones: No fractures or subluxation. The lateral masses of C1 appear intact on the odontoid view. The C7-T1 level not well visualized. No suspicious bony lesions. Soft tissues: No prevertebral soft tissue swelling. IMPRESSION: 1. No fracture or subluxation. Dictated by: Quang Callejas M.D. on 11/27/2022 at 2:35 Approved by: Quang Callejas M.D. on 11/27/2022 at 2:36
== END ==
PROVIDERS: PCP Family Medicine; Referring Provider Registered Nurse; Visit Provider Registered Nurse
DX: M54.10 Radiculopathy, site unspecified (principal)
CPT/HCPCS: 72040

== ENCOUNTER → 2024-10-24 14:49 | Outpatient (CLI) | payer BC, SELFPAY ==
--- NOTE | 2024-10-24 14:51 | DI.RAD.S_ITS ---
PROCEDURE: XR THORACIC SPINE 3V INDICATIONS: BACK PAIN TECHNIQUE: 3 views of the thoracic spine were acquired. COMPARISON: [facility], , XR THORACIC SPINE 2V, 05/04/2021, 18:19. FINDINGS: Bones: No fractures or dislocations. No suspicious bony lesions. 12 pairs of ribs are noted, and appear intact where visualized. Mild dextrocurvature. Soft tissues: No paravertebral stripe thickening. IMPRESSION: Mild dextrocurvature of the thoracic spine is stable. No acute osseous abnormalities. Dictated by: Kwame Ewing M.D. on 10/24/2024 at 16:41 Approved by: Kwame Ewing M.D. on 10/24/2024 at 16:42
--- NOTE | 2024-10-24 14:51 | DI.RAD.S_ITS ---
PROCEDURE: XR CERVICAL SPINE 2V OR 3V INDICATIONS: NECK PAIN TECHNIQUE: 3 view(s) of the cervical spine were acquired. COMPARISON: [facility], CR, XR CERVICAL SPINE 2V OR 3V, 11/26/2022, 17:06. [facility], CR, XR CERVICAL SPINE 2V OR 3V, 05/04/2021, 18:19. FINDINGS: Bones: No fractures or dislocations to the C7 level. The lateral masses of C1 appear intact on the odontoid view. No suspicious bony lesions. Mild multilevel degenerative changes of the cervical spine are redemonstrated. Soft tissues: No prevertebral soft tissue swelling. IMPRESSION: Mild degenerative changes. No acute osseous abnormalities. Dictated by: Kwame Ewing M.D. on 10/24/2024 at 16:40 Approved by: Kwame Ewing M.D. on 10/24/2024 at 16:41
== END ==
PROVIDERS: PCP Family Medicine; Referring Provider Family Medicine; Visit Provider Family Medicine
DX: M47.22 Other spondylosis with radiculopathy, cervical region (principal); M41.34 Thoracogenic scoliosis, thoracic region
CPT/HCPCS: 72040; 72072